=== PATIENT | female | born 1990 | race Caucasian/White ===

== ENCOUNTER 2022-05-06 10:36 | Outpatient (CLI) | payer OTHER, SELFPAY ==
--- NOTE | 2022-05-06 10:15 | US_ITS ---
Final Report Patient: RODRIGUE PAIZ Facility:?[facility] Patient ID:?[id number] Site Patient ID:?[id number]. Site :?[id number] Study:?US Pelvis -05/06/2022 11:26:11 AM Ordering Physician:Francois Whitaker Final Report: INDICATION: Pelvic pain. TECHNIQUE: Ultrasound pelvis transabdominal and transvaginal for better assessment or to better visualize the endometrium. Real-time sonographic images with spectral and color Doppler imaging of the ovaries were obtained. COMPARISON: None. FINDINGS: Uterus: 7.2 x 4.7 x 3.3 cm. Normal echotexture of the myometrium. No masses. Endometrium: Transvaginal imaging was performed to better evaluate the endometrium. Endometrial thickness measures 3 mm. No sign of endometrial mass or fluid. Right ovary measures 3.9 x 2.9 x 2.0 cm. Multiple normal follicles. Normal blood flow in the right ovary. Left ovary surgically absent. No adnexal lesions. Cul-de-sac: No significant free fluid. IMPRESSION: 1. No acute or significant findings. 2. Left ovary surgically absent Dictated by Fer Arce MD @ 05/06/2022 11:30:15 AM (Electronic Signature)
== END 2022-05-06 10:37 | disposition home or self-care (01) ==
LOC: US 10:36
PROVIDERS: PCP Family Medicine; Visit Provider Family Medicine
DX: R10.2 Pelvic and perineal pain (principal)
CPT/HCPCS: 76830; 76856

== ENCOUNTER 2022-10-14 11:00 | Outpatient (RCR) | payer OTHER, SELFPAY | END 2022-12-30 13:43 | disposition home or self-care (01) | PROVIDERS: PCP Family Medicine; Visit Provider Family Medicine | DX: R10.2 Pelvic and perineal pain (principal); Z51.89 Encounter for other specified aftercare | CPT/HCPCS: 97110; 97112; 97140; 97161; 97535 ==